=== PATIENT | female | born 1995 | race Caucasian/White ===

== ENCOUNTER 2018-06-23 10:53 | Outpatient (CLI) | payer MEDICAID, OTHER ==
[~2018-06-23 10:53] MED LIST: NO HOME MEDS
== END 2018-06-23 23:59 | disposition home or self-care (01) ==
LOC: CARD DIAG 10:53
PROVIDERS: ATTEND Internal Medicine Infectious Disease
DX: I07.8 Other rheumatic tricuspid valve diseases (principal); F17.200 Nicotine dependence, unspecified, uncomplicated
CPT/HCPCS: 93308

== ENCOUNTER 2023-02-11 11:38 | Outpatient (CLI) | payer MEDICAID | END 2023-02-11 23:59 | disposition home or self-care (01) | LOC: RAD 11:38 | PROVIDERS: ATTEND General Practice | DX: I51.7 Cardiomegaly (principal); F11.20 Opioid dependence, uncomplicated | CPT/HCPCS: 93005 ==

== ENCOUNTER 2023-07-03 13:11 | Outpatient (CLI) | payer MEDICAID | END 2023-07-03 23:59 | disposition home or self-care (01) | LOC: RAD 13:11 | PROVIDERS: ATTEND Physician Assistant | DX: I51.7 Cardiomegaly (principal); F11.20 Opioid dependence, uncomplicated | CPT/HCPCS: 93005 ==

== ENCOUNTER 2024-04-29 14:12 | Outpatient (CLI) | payer MEDICAID | END 2024-04-29 23:59 | disposition home or self-care (01) | LOC: RAD 14:12 | PROVIDERS: ATTEND Physician Assistant | DX: F11.20 Opioid dependence, uncomplicated (principal) | CPT/HCPCS: 93005 ==

== ENCOUNTER 2024-10-16 10:20 | Emergency (ER) | payer MEDICAID ==
[~2024-10-16] VITALS: Ht 162.6 cm; Wt 59.9 kg
[2024-10-16 10:24] VITALS: BP 139/91; PULSE 111; O2SAT 97
[2024-10-16 11:27] LABS: URINE HCG NEGATIVE (NEG)
[2024-10-16 11:29] LABS: BILIRUBIN,URINE NEGATIVE (Neg); CLARITY,URINE CLOUDY (Clear); GLUCOSE, URINE NEGATIVE (Neg); KETONES,URINE TRACE mg/dl (Neg); LEUKOCYTE ESTERASE ,URINE NEGATIVE (Neg); NITRITES, URINE NEGATIVE (Neg); OCCULT BLOOD,URINE NEGATIVE (Neg); PROTEIN,URINE TRACE mg/dl (Neg); UROBILINOGEN,URINE 0.2 E.U/dL (0.2-1.0)
[2024-10-16 11:31] LABS: COLOR,URINE DARK YELLOW (Yellow); UA COLLECTION TYPE VOIDED
[2024-10-16 11:38] LABS: BACTERIA,URINE 1+ /HPF (Neg); MUCUS STRANDS MANY /LPF (Neg); RBC,URINE 0-2 /HPF (0-2); SQUAMOUS EPITHELIAL CELL,UR MANY /LPF (FEW); WBC,URINE 0-4 /HPF (0-4)
[2024-10-16 11:47] LABS: BASOPHILS % (AUTO) 0.5 % (0-1); EOSINOPHILS # (AUTO) 0.1 X10'3 (0-0.9); EOSINOPHILS % (AUTO) 1.2 % (0-6); HEMATOCRIT 42.6 % (35.0-45.0); HEMOGLOBIN 14.3 g/dl (12.0-16.0); LYMPHOCYTES # (AUTO) 1.5 X10'3 (1.1-4.8); LYMPHOCYTES % (AUTO) 30.1 % (21-51); MEAN CORPUSCULAR HEMOGLOBIN 30.5 PG (27.0-31.0); MEAN CORPUSCULAR HGB CONC 33.6 g/dL (33.0-36.5); MEAN CORPUSCULAR VOLUME 90.8 FL (78-98); MEAN PLATELET VOLUME 10.5 FL (7.4-10.4); MONOCYTES # (AUTO) 0.4 X10'3 (0-0.9); MONOCYTES % (AUTO) 7.2 % (2-12); NEUTROPHILS # (AUTO) 3.1 X10'3 (1.8-7.7); PLATELET COUNT 176 X10'3 (140-440); RED BLOOD COUNT 4.68 X10'6 (4.20-5.60); RED CELL DISTRIBUTION WIDTH 14.2 % (11.5-14.5); WHITE BLOOD COUNT 5.1 X10'3 (4.5-11.0)
[2024-10-16 12:14] LABS: ALBUMIN 4.2 G/DL (3.4-5.0); ANION GAP 10 (8-16); BLOOD UREA NITROGEN 9 MG/DL (7-18); BUN/CREATININE RATIO 14.5 (10.0-20.0); CHLORIDE 104 MMOL/L (99-107); CREATININE 0.62 MG/DL (0.40-0.90); ETHANOL < 10 MG/DL (<10); GLUCOSE 89 MG/DL (70-104); SODIUM 139 MMOL/L (135-145); TOTAL CARBON DIOXIDE 25.3 MMOL/L (24-32); eCRCL 116 ML/MIN; eGFR > 90 ML/MIN
[2024-10-16 12:47] LABS: URINE AMPHETAMINE SCREEN NEGATIVE (Neg); URINE BARBITUATE SCREEN NEGATIVE (Neg); URINE BENZODIAZEPINES SCREEN NEGATIVE (Neg); URINE CANNABINOID SCREEN POSITIVE (Neg); URINE COCAINE SCREEN NEGATIVE (Neg); URINE METHADONE SCREEN POSITIVE (Neg); URINE OPIATE SCREEN NEGATIVE (Neg); URINE PHENCYCLIDINE SCREEN NEGATIVE (Neg)
[2024-10-16 13:30] VITALS: RESP 16
[2024-10-16] MEDS: OLANZapine 2.5MG tablet PO ONE (15:28)
[2024-10-16] MEDS ORDERED: OLAN5TAB3 PO (17:11)
[2024-10-16 17:19] VITALS: TEMP 98.5
== END 2024-10-16 17:23 | disposition home or self-care (01) ==
LOC: ER 10:21
DX: F20.9 Schizophrenia, unspecified (principal); F41.9 Anxiety disorder, unspecified; F60.0 Paranoid personality disorder; F32.A Depression, unspecified; Z20.822 Contact with and (suspected) exposure to COVID-19
CPT/HCPCS: 80048; 80305; 80320; 81001; 81025; 84443; 85025; 87811; 99285

== ENCOUNTER 2024-10-20 12:52 | Emergency (ER) | payer MEDICAID ==
[~2024-10-20] VITALS: Ht 162.6 cm; Wt 59.9 kg
[~2024-10-20 12:52] MED LIST changes: +OLAN5TAB3 PO
[2024-10-20 14:22] LABS: URINE HCG NEGATIVE (NEG)
[2024-10-20 14:27] LABS: BILIRUBIN,URINE NEGATIVE (Neg); CLARITY,URINE CLEAR (Clear); COLOR,URINE YELLOW (Yellow); GLUCOSE, URINE NEGATIVE (Neg); KETONES,URINE NEGATIVE (Neg); LEUKOCYTE ESTERASE ,URINE NEGATIVE (Neg); NITRITES, URINE NEGATIVE (Neg); OCCULT BLOOD,URINE SMALL (Neg); PH,URINE 6.5 (4.8-8.0); PROTEIN,URINE TRACE mg/dl (Neg); UROBILINOGEN,URINE 0.2 E.U/dL (0.2-1.0)
[2024-10-20 14:31] LABS: URINE AMPHETAMINE SCREEN NEGATIVE (Neg); URINE BARBITUATE SCREEN NEGATIVE (Neg); URINE BENZODIAZEPINES SCREEN NEGATIVE (Neg); URINE CANNABINOID SCREEN POSITIVE (Neg); URINE COCAINE SCREEN NEGATIVE (Neg); URINE METHADONE SCREEN POSITIVE (Neg); URINE OPIATE SCREEN NEGATIVE (Neg); URINE PHENCYCLIDINE SCREEN NEGATIVE (Neg)
[2024-10-20 14:32] LABS: UA COLLECTION TYPE CLN CATCH MIDSTREAM
[2024-10-20 14:34] LABS: WBC,URINE 0-4 /HPF (0-4)
[2024-10-20 14:35] LABS: BACTERIA,URINE FEW /HPF (Neg); RBC,URINE 0-2 /HPF (0-2); RENAL CELLS, URINE FEW /HPF; SQUAMOUS EPITHELIAL CELL,UR MODERATE /LPF (FEW); TRANSITIONAL EPI CELLS,URINE FEW /HPF
[2024-10-20 14:40] LABS: EOSINOPHILS % (AUTO) 0.5 % (0-6); MONOCYTES # (AUTO) 0.3 X10'3 (0-0.9)
[2024-10-20 14:41] LABS: BASOPHILS % (AUTO) 0.2 % (0-1); HEMATOCRIT 42.5 % (35.0-45.0); HEMOGLOBIN 14.6 g/dl (12.0-16.0); LYMPHOCYTES # (AUTO) 1.8 X10'3 (1.1-4.8); LYMPHOCYTES % (AUTO) 28.8 % (21-51); MEAN CORPUSCULAR HEMOGLOBIN 30.8 PG (27.0-31.0); MEAN CORPUSCULAR HGB CONC 34.3 g/dL (33.0-36.5); MEAN PLATELET VOLUME 10.7 FL (7.4-10.4); MONOCYTES % (AUTO) 4.8 % (2-12); NEUTROPHILS # (AUTO) 4.1 X10'3 (1.8-7.7); NEUTROPHILS % (AUTO) 65.7 % (42-75); PLATELET COUNT 222 X10'3 (140-440); RED BLOOD COUNT 4.73 X10'6 (4.20-5.60); RED CELL DISTRIBUTION WIDTH 14.2 % (11.5-14.5); WHITE BLOOD COUNT 6.2 X10'3 (4.5-11.0)
[2024-10-20] MEDS ORDERED: HYDR-3927 PO (14:41)
[2024-10-20] MEDS ORDERED: LEVE250T PO (14:41)
[2024-10-20] MEDS ORDERED: PROP10TA10 PO (14:41)
[2024-10-20 15:01] LABS: LARGE PLATELETS FEW; PLATELET ESTIMATE NORMAL
[2024-10-20 15:09] LABS: ALBUMIN 4.5 G/DL (3.4-5.0); ANION GAP 9 (8-16); BLOOD UREA NITROGEN 11 MG/DL (7-18); BUN/CREATININE RATIO 17.2 (10.0-20.0); CALCIUM 9.6 MG/DL (8.5-10.1); CHLORIDE 103 MMOL/L (99-107); CREATININE 0.64 MG/DL (0.40-0.90); GLUCOSE 79 MG/DL (70-104); SODIUM 139 MMOL/L (135-145); THYROID STIMULATING HORMONE 1.18 ulU/ml (0.34-4.50); TOTAL CARBON DIOXIDE 26.9 MMOL/L (24-32); eCRCL 112 ML/MIN; eGFR > 90 ML/MIN
[2024-10-20 15:14] LABS: ETHANOL < 10 MG/DL (<10)
[2024-10-20] MEDS ORDERED: propranolol 10mg tablet PO PRN (18:05)
[2024-10-20] MEDS: levetiracetam 250mg tablet PO SCH (20:39)
[2024-10-20] MEDS: hydrOXYzine 25 MG tablet PO SCH (20:39)
[2024-10-20] MEDS: OLANZAPINE 5 MG TABLET PO SCH (20:39)
[2024-10-20] MEDS: methadone 10mg tablet PO ONE (21:01)
[2024-10-21] MEDS: methadone 10mg tablet PO ONE (07:56)
[2024-10-21 15:48] VITALS: BP 145/82; PULSE 98; RESP 16; TEMP 98.6; O2SAT 99
== END 2024-10-21 15:55 | disposition home or self-care (01) ==
LOC: ER 12:53
DX: R45.851 Suicidal ideations (principal); F99 Mental disorder, not otherwise specified; Z79.899 Other long term (current) drug therapy; Z20.822 Contact with and (suspected) exposure to COVID-19
CPT/HCPCS: 36415; 80048; 80305; 80320; 81001; 81025; 84443; 85008; 85025; 87811; 99284; Q0177; A4615

== ENCOUNTER 2024-10-28 12:18 | Emergency (ER) | payer MEDICAID ==
[~2024-10-28] VITALS: Ht 162.6 cm; Wt 61.2 kg
[~2024-10-28 12:18] MED LIST changes: +HYDR-3927 PO; +LEVE250T PO; -NO HOME MEDS; +PROP10TA10 PO
[2024-10-28 13:30] LABS: BASOPHILS % (AUTO) 0.3 % (0-1); EOSINOPHILS # (AUTO) 0.1 X10'3 (0-0.9); EOSINOPHILS % (AUTO) 2.6 % (0-6); HEMATOCRIT 43.1 % (35.0-45.0); HEMOGLOBIN 14.5 g/dl (12.0-16.0); LYMPHOCYTES # (AUTO) 1.4 X10'3 (1.1-4.8); LYMPHOCYTES % (AUTO) 25.8 % (21-51); MEAN CORPUSCULAR HEMOGLOBIN 30.3 PG (27.0-31.0); MEAN CORPUSCULAR HGB CONC 33.7 g/dL (33.0-36.5); MEAN PLATELET VOLUME 10.2 FL (7.4-10.4); MONOCYTES # (AUTO) 0.5 X10'3 (0-0.9); MONOCYTES % (AUTO) 8.5 % (2-12); NEUTROPHILS # (AUTO) 3.5 X10'3 (1.8-7.7); NEUTROPHILS % (AUTO) 62.8 % (42-75); PLATELET COUNT 196 X10'3 (140-440); RED BLOOD COUNT 4.79 X10'6 (4.20-5.60); WHITE BLOOD COUNT 5.5 X10'3 (4.5-11.0)
[2024-10-28 13:37] LABS: BILIRUBIN,URINE NEGATIVE (Neg); CLARITY,URINE SLIGHTLY CLOUDY (Clear); COLOR,URINE YELLOW (Yellow); GLUCOSE, URINE NEGATIVE (Neg); KETONES,URINE TRACE mg/dl (Neg); LEUKOCYTE ESTERASE ,URINE NEGATIVE (Neg); NITRITES, URINE NEGATIVE (Neg); OCCULT BLOOD,URINE NEGATIVE (Neg); PROTEIN,URINE NEGATIVE (Neg); UROBILINOGEN,URINE 0.2 E.U/dL (0.2-1.0)
[2024-10-28 13:38] LABS: UA COLLECTION TYPE NON-SPECIFIED; URINE HCG NEGATIVE (NEG)
[2024-10-28 13:55] LABS: BACTERIA,URINE 1+ /HPF (Neg); RBC,URINE NONE SEEN /HPF (0-2); SQUAMOUS EPITHELIAL CELL,UR MODERATE /LPF (FEW); WBC,URINE 0-4 /HPF (0-4)
[2024-10-28 14:00] LABS: URINE AMPHETAMINE SCREEN NEGATIVE (Neg); URINE BARBITUATE SCREEN NEGATIVE (Neg); URINE BENZODIAZEPINES SCREEN NEGATIVE (Neg); URINE CANNABINOID SCREEN POSITIVE (Neg); URINE COCAINE SCREEN NEGATIVE (Neg); URINE METHADONE SCREEN POSITIVE (Neg); URINE OPIATE SCREEN NEGATIVE (Neg); URINE PHENCYCLIDINE SCREEN NEGATIVE (Neg)
[2024-10-28 14:03] LABS: ANION GAP 8 (8-16); BLOOD UREA NITROGEN 12 MG/DL (7-18); BUN/CREATININE RATIO 19.7 (10.0-20.0); CALCIUM 9.1 MG/DL (8.5-10.1); CHLORIDE 103 MMOL/L (99-107); CREATININE 0.61 MG/DL (0.40-0.90); GLUCOSE 82 MG/DL (70-104); SODIUM 140 MMOL/L (135-145); THYROID STIMULATING HORMONE 0.44 ulU/ml (0.34-4.50); eCRCL 118 ML/MIN; eGFR > 90 ML/MIN
[2024-10-28 14:20] LABS: ETHANOL < 10 MG/DL (<10)
[2024-10-28] MEDS ORDERED: PROP10TA10 PO (17:36)
[2024-10-28] MEDS ORDERED: ALPR-624 PO (17:36)
[2024-10-28 17:37] VITALS: BP 124/81; PULSE 80; RESP 16; TEMP 98.2; O2SAT 99
[2024-10-28] MEDS: ALPRAZolam 0.5mg tablet PO ONE (17:45)
== END 2024-10-28 18:05 | disposition home or self-care (01) ==
LOC: ER 12:19
DX: R44.0 Auditory hallucinations (principal); F41.9 Anxiety disorder, unspecified; F12.90 Cannabis use, unspecified, uncomplicated
CPT/HCPCS: 36415; 80048; 80305; 80320; 81001; 81025; 84443; 85025; 99283